=== PATIENT | female | born 1995 | race Caucasian/White ===

== ENCOUNTER 2019-11-16 05:34 | Day surgery (SDC) | payer MEDICAID ==
[2019-11-14 14:48] LABS: BASOPHILS # (AUTO) 0.1 X10'3 (0-0.2); BASOPHILS % (AUTO) 0.6 % (0-1); EOSINOPHILS # (AUTO) 0.1 X10'3 (0-0.9); EOSINOPHILS % (AUTO) 1.3 % (0-6); LYMPHOCYTES # (AUTO) 2.8 X10'3 (1.1-4.8); LYMPHOCYTES % (AUTO) 24.8 % (21-51); MEAN CORPUSCULAR HEMOGLOBIN 26.8 PG (27.0-31.0); MEAN CORPUSCULAR HGB CONC 33.1 g/dL (33.0-36.5); MEAN CORPUSCULAR VOLUME 80.9 FL (78-98); MEAN PLATELET VOLUME 7.2 FL (7.4-10.4); MONOCYTES # (AUTO) 0.6 X10'3 (0-0.9); MONOCYTES % (AUTO) 5.6 % (2-12); NEUTROPHILS # (AUTO) 7.7 X10'3 (1.8-7.7); NEUTROPHILS % (AUTO) 67.7 % (42-75); PRE OP HEMATOCRIT 35.9 % (35.0-45.0); PRE OP HEMOGLOBIN 11.9 g/dL (12.0-16.0); PRE OP PLATELET COUNT 391 X10'3 (140-440); RED BLOOD COUNT 4.44 X10'6 (4.20-5.60); RED CELL DISTRIBUTION WIDTH 14.8 % (11.5-14.5)
[2019-11-14 15:00] LABS: ALBUMIN 3.7 G/DL (3.4-5.0); ALBUMIN/GLOBULIN RATIO 0.9 (1.1-1.5); ALKALINE PHOSPHATASE 80 IU/L (46-116); BLOOD UREA NITROGEN 10 MG/DL (7-18); BUN/CREATININE RATIO 13.5 (6.6-38.0); CALCIUM 9.1 MG/DL (8.5-10.1); CHLORIDE 104 MMOL/L (99-107); CREATININE 0.74 MG/DL (0.40-0.90); PRE OP ALT 27 U/L (30-65); PRE OP ANION GAP 10 (8-16); PRE OP AST 16 U/L (10-37); PRE OP BILIRUB, TOTAL 0.4 MG/DL (0.0-1.0); PRE OP GLUCOSE 91 MG/DL (70-104); PRE OP SODIUM 139 MMOL/L (135-145); TOTAL CARBON DIOXIDE 25.4 MMOL/L (24-32); TOTAL PROTEIN 7.9 G/DL (6.4-8.2); eGFR > 90 ML/MIN
[2019-11-14 15:08] LABS: HCG SERUM QL NEGATIVE
[2019-11-16] VITALS (14 sets, daily range): BP systolic 113–141; BP diastolic 68–90
[~2019-11-16] VITALS: Ht 165.1 cm; Wt 104.3 kg
[~2019-11-16 05:34] MED LIST: BUPR300T53 PO; METF500T PO; THY60T PO; TOPI50TA PO; famotidine 20mg tablet PO ONE; ringers solution, lacted 1,000 ML IV SCH
[2019-11-16] MEDS ORDERED: LIDOcaine 1% (10mg/ml) 2ml vial ONE (05:48)
[2019-11-16] MEDS ORDERED: BUPIVAcaine 0.5% inj/PF 30 ML ONE (06:40)
[2019-11-16] MEDS ORDERED: fentaNYL/PF 50MCG/1 ML 2ML syringe ONE ×2 (07:33→08:38)
[2019-11-16] MEDS ORDERED: midazolam 2 mg/2 ml injection ONE (07:33)
[2019-11-16] MEDS ORDERED: sevoflurane 250ml liquid IH ONE (07:37)
[2019-11-16] MEDS ORDERED: LIDOcaine 2% (20mg/ml) 5ml vial ONE (07:45)
[2019-11-16] MEDS ORDERED: rocuronium 10mg/ml inj IV ONE (07:45)
[2019-11-16] MEDS ORDERED: propofol inj 20 ML IV ONE (07:45)
[2019-11-16] MEDS ORDERED: ringers solution, lacted 1,000 ML IV SCH (08:02)
[2019-11-16] MEDS ORDERED: meperidine/PF 25mg/ml syringe IV PRN ×3 (08:05)
[2019-11-16] MEDS ORDERED: morphine 4 MG/ML inj SYRINge IV PRN (08:05)
[2019-11-16] MEDS ORDERED: ondansetron/PF 4mg/2ml inj IV PRN (08:05)
[2019-11-16] MEDS ORDERED: proCHLORperazine 10 MG/2 ml inj IV PRN (08:05)
[2019-11-16] MEDS ORDERED: morphine 2 MG/ML inj. syringe IV PRN (08:05)
[2019-11-16] MEDS ORDERED: BUPIVAcaine/PF 5 MG/ML 10ML VIAL IJ ONE (08:15)
[2019-11-16] MEDS ORDERED: neostigmine methylsulfate 1 MG/ML 10ml vial ONE (08:26)
[2019-11-16] MEDS ORDERED: dexamethasone sod phosphate 4mg/ml inj. ONE (08:26)
[2019-11-16] MEDS ORDERED: ondansetron/PF 4mg/2ml inj ONE (08:26)
[2019-11-16] MEDS ORDERED: glycopyrrolate 0.2mg/ml inj ONE (08:26)
[2019-11-16] MEDS ORDERED: sugammadex 200mg/2ml injection IV ONE (08:34)
--- NOTE | 2019-11-16 08:40 | NUR ---
Received from OR via BED , accompanied by Anesthesiologist DR BILLS and report given by Anesthesiolgist. PATIENT WAKING UP, C/O PAIN SEE EMAR, V/S WNL, NEUROVASCULAR CHECKS INTACT, 20G PIV RUE, SCD ON, DEMABONDED TO LAP SIGHTS OF ABDOMEN AND WITH PERIPAD WITH SCANT DRAINAGE CDI.
[2019-11-16] MEDS ORDERED: oxyCODONE/APAP 5-325mg tablet PO ONE (08:45)
--- NOTE | 2019-11-16 10:40 | NUR ---
patient unable to void. bladder scan for 79
--- NOTE | 2019-11-16 11:50 | NUR ---
PATIENT A&OX4,DENIES PAIN , V/S WNL, NEUROVASCULAR CHECKS INTACT, 20G PIV RUE D/C, SCD OFF, DEMABONDED TO LAP SIGHTS OF ABDOMEN AND WITH PERIPAD WITH SCANT DRAINAGE CDI. PATIENT HAS VOIDED. I HAVE REVIEWED D/C INSTRUCTIONS WITH PATIENT AND FAMILY AND THEY HAVE VERBALIZED UNDERSTANDING. PATIENT D/C HOME WITH ALL BELONGINGS AND FAMILY GAVE TRANSPORT HOME.
== END 2019-11-16 11:50 | disposition home or self-care (01) ==
LOC: PAS 05:34
PROVIDERS: ATTEND Obstetrics & Gynecology
DX: R10.2 Pelvic and perineal pain (principal); F31.9 Bipolar disorder, unspecified; D64.9 Anemia, unspecified; E03.9 Hypothyroidism, unspecified; K21.9 Gastro-esophageal reflux disease without esophagitis; Z79.899 Other long term (current) drug therapy; Z88.0 Allergy status to penicillin; Z88.8 Allergy status to other drugs, medicaments and biological substances; F17.210 Nicotine dependence, cigarettes, uncomplicated; Z98.890 Other specified postprocedural states
CPT/HCPCS: 36415; 49321; 80053; 82948; 84703; 85025; 86885; 86900; 86901; C9399; J1100; J2001; J2175; J2250; J2405; J2704; J2710; J3010; J3490; J7120; A4618; A6250; A7000

== ENCOUNTER 2023-01-15 18:08 | Emergency (ER) | payer MEDICAID ==
[~2023-01-15] VITALS: Ht 165.1 cm; Wt 112.3 kg
[~2023-01-15 18:08] MED LIST changes: -famotidine 20mg tablet PO ONE; -ringers solution, lacted 1,000 ML IV SCH
[2023-01-15 19:42] VITALS: BP 154/97
[2023-01-15 20:11] LABS: CLARITY,URINE CLEAR (Clear); COLOR,URINE YELLOW (Yellow); GLUCOSE, URINE NEGATIVE (Neg); KETONES,URINE NEGATIVE (Neg); LEUKOCYTE ESTERASE ,URINE NEGATIVE (Neg); NITRITES, URINE NEGATIVE (Neg); OCCULT BLOOD,URINE TRACE-INTACT (Neg); PH,URINE 6.5 (4.8-8.0); PROTEIN,URINE NEGATIVE (Neg); UROBILINOGEN,URINE 0.2 E.U/dL (0.2-1.0)
[2023-01-15 20:15] LABS: UA COLLECTION TYPE CLN CATCH MIDSTREAM
[2023-01-15 20:16] LABS: BACTERIA,URINE NONE SEEN /HPF (Neg); MUCUS STRANDS NONE SEEN /LPF (Neg); RBC,URINE 0-2 /HPF (0-2); SQUAMOUS EPITHELIAL CELL,UR FEW /LPF (FEW); WBC,URINE NONE SEEN /HPF (0-4)
[2023-01-15 20:48] LABS: URINE HCG NEGATIVE (NEG)
== END 2023-01-15 21:44 | disposition home or self-care (01) ==
LOC: ER 18:09
DX: R10.13 Epigastric pain (principal); R11.0 Nausea; E03.9 Hypothyroidism, unspecified; F31.9 Bipolar disorder, unspecified; K21.9 Gastro-esophageal reflux disease without esophagitis; Z88.0 Allergy status to penicillin; Z79.899 Other long term (current) drug therapy
CPT/HCPCS: 81001; 81025; 99283

== ENCOUNTER 2023-05-19 18:21 | Emergency (ER) | payer MEDICAID ==
[~2023-05-19] VITALS: Ht 165.1 cm; Wt 104.5 kg
[2023-05-19 18:47] VITALS: BP 141/91; PULSE 86; TEMP 98.9; O2SAT 99
[2023-05-19] MEDS ORDERED: ketorolac tromethamine 15mg/ml inj. IM ONE (21:00)
[2023-05-19] MEDS ORDERED: levoFLOXACIN 750MG TABLET PO ONE (21:00)
[2023-05-19] MEDS ORDERED: LEVO750T68 PO (21:02)
[2023-05-19] MEDS ORDERED: NAPR-56 PO (21:02)
[2023-05-19] MEDS ORDERED: ketorolac trometh. 30mg/ml inj. IM ONE (21:20)
[2023-05-19 21:24] VITALS: RESP 16
== END 2023-05-19 21:54 | disposition home or self-care (01) ==
LOC: ER 18:22
DX: J22 Unspecified acute lower respiratory infection (principal); K21.9 Gastro-esophageal reflux disease without esophagitis; E03.9 Hypothyroidism, unspecified; F31.9 Bipolar disorder, unspecified; Z88.0 Allergy status to penicillin; Z79.899 Other long term (current) drug therapy
CPT/HCPCS: 96372; 99283; J1885

== ENCOUNTER 2024-04-13 18:30 | Emergency (ER) | payer MEDICAID ==
[~2024-04-13] VITALS: Ht 165.1 cm; Wt 112.2 kg
[2024-04-13 18:34] VITALS: TEMP 98.6
[2024-04-13 18:59] LABS: BILIRUBIN,URINE MODERATE (Neg); CLARITY,URINE SLIGHTLY CLOUDY (Clear); COLOR,URINE YELLOW (Yellow); GLUCOSE, URINE NEGATIVE (Neg); KETONES,URINE NEGATIVE (Neg); LEUKOCYTE ESTERASE ,URINE NEGATIVE (Neg); NITRITES, URINE NEGATIVE (Neg); OCCULT BLOOD,URINE TRACE-INTACT (Neg); PROTEIN,URINE TRACE mg/dl (Neg); UROBILINOGEN,URINE 0.2 E.U/dL (0.2-1.0)
[2024-04-13 19:00] LABS: URINE HCG NEGATIVE (NEG)
[2024-04-13 19:15] LABS: UA COLLECTION TYPE CLN CATCH MIDSTREAM
[2024-04-13] MEDS: ondansetron 4mg rapidly disintigrating tab PO ONE (19:19)
[2024-04-13] MEDS: dicyclomine 10 MG capsule PO ONE (19:19)
[2024-04-13] MEDS: ketorolac trometh. 30mg/ml inj. IM ONE (19:19)
[2024-04-13] MEDS: mag hydrox/Alum hydrox/simeth 30ml oral suspension PO ONE (19:19)
[2024-04-13 19:20] LABS: BACTERIA,URINE FEW /HPF (Neg); MUCUS STRANDS FEW /LPF (Neg); RBC,URINE 0-2 /HPF (0-2); SQUAMOUS EPITHELIAL CELL,UR FEW /LPF (FEW); WBC,URINE 0-4 /HPF (0-4)
[2024-04-13] MEDS: LIDOcaine 2% Viscous 15ml cup MM PRN (19:20)
[2024-04-13 19:23] LABS: BASOPHILS # (AUTO) 0.1 X10'3 (0-0.2); BASOPHILS % (AUTO) 0.5 % (0-1); EOSINOPHILS # (AUTO) 0.2 X10'3 (0-0.9); EOSINOPHILS % (AUTO) 1.3 % (0-6); HEMATOCRIT 37.6 % (35.0-45.0); LYMPHOCYTES # (AUTO) 2.8 X10'3 (1.1-4.8); LYMPHOCYTES % (AUTO) 17.9 % (21-51); MEAN CORPUSCULAR HEMOGLOBIN 24.3 PG (27.0-31.0); MEAN CORPUSCULAR HGB CONC 31.9 g/dL (33.0-36.5); MEAN CORPUSCULAR VOLUME 76.1 FL (78-98); MEAN PLATELET VOLUME 7.2 FL (7.4-10.4); MONOCYTES # (AUTO) 0.9 X10'3 (0-0.9); MONOCYTES % (AUTO) 5.8 % (2-12); NEUTROPHILS # (AUTO) 11.6 X10'3 (1.8-7.7); NEUTROPHILS % (AUTO) 74.5 % (42-75); PLATELET COUNT 420 X10'3 (140-440); RED BLOOD COUNT 4.95 X10'6 (4.20-5.60); RED CELL DISTRIBUTION WIDTH 17.6 % (11.5-14.5); WHITE BLOOD COUNT 15.6 X10'3 (4.5-11.0)
[2024-04-13 19:37] LABS: ALANINE AMINOTRANSFERASE 30 U/L (12-78); ALBUMIN 3.8 G/DL (3.4-5.0); ALBUMIN/GLOBULIN RATIO 0.8 (1.1-1.5); ALKALINE PHOSPHATASE 75 IU/L (46-116); ANION GAP 9 (8-16); ASPARTATE AMINO TRANSFERASE 15 U/L (10-37); BILIRUBIN,TOTAL 0.5 MG/DL (0.1-1.0); BLOOD UREA NITROGEN 12 MG/DL (7-18); BUN/CREATININE RATIO 15.2 (10.0-20.0); CALCIUM 9.5 MG/DL (8.5-10.1); CHLORIDE 103 MMOL/L (99-107); CREATININE 0.79 MG/DL (0.40-0.90); GLUCOSE 98 MG/DL (70-104); LIPASE 63 U/L (16-77); POTASSIUM 3.9 MMOL/L (3.5-5.1); SODIUM 138 MMOL/L (135-145); TOTAL CARBON DIOXIDE 26.5 MMOL/L (24-32); TOTAL PROTEIN 8.3 G/DL (6.4-8.2); eCRCL 97 ML/MIN; eGFR 88 ML/MIN
[2024-04-13 19:46] LABS: HCG SERUM QL NEGATIVE
[2024-04-13] MEDS: diphenhydrAMINE 50 mg/ml inj IM ONE (20:17)
[2024-04-13] MEDS: metoclopramide 5 mg/ml inj IM ONE (20:18)
[2024-04-13] MEDS ORDERED: MAG-54 PO (20:38)
[2024-04-13] MEDS ORDERED: LIDO15SO9 PO (20:38)
[2024-04-13] MEDS ORDERED: DICY20TA17 PO (20:38)
[2024-04-13 20:49] VITALS: BP 99/68; PULSE 78; RESP 16; O2SAT 98
== END 2024-04-13 20:53 | disposition home or self-care (01) ==
LOC: ER 18:31
DX: K21.9 Gastro-esophageal reflux disease without esophagitis (principal); F31.9 Bipolar disorder, unspecified; Z88.0 Allergy status to penicillin; Z79.899 Other long term (current) drug therapy; Z79.84 Long term (current) use of oral hypoglycemic drugs
CPT/HCPCS: 36415; 74176; 76700; 80053; 81001; 81025; 83690; 84703; 85025; 96372; 99285; J1200; J1885; J2765

== ENCOUNTER 2024-04-14 05:29 | Emergency (ER) | payer MEDICAID ==
[~2024-04-14] VITALS: Ht 165.1 cm; Wt 111.4 kg
[~2024-04-14 05:29] MED LIST changes: +DICY20TA17 PO; +LIDO15SO9 PO; +MAG-54 PO
[2024-04-14 05:38] VITALS: TEMP 97.2
[2024-04-14] MEDS: metoclopramide 5 mg/ml inj IV ONE (06:47)
[2024-04-14] MEDS: normal saline 1000ML IV soln IVB ONE ×2 (06:47→07:17)
[2024-04-14] MEDS: diphenhydrAMINE 50 mg/ml inj IV ONE (06:47)
[2024-04-14] MEDS: LORazepam 2 mg/ml vial IV ONE (06:48)
[2024-04-14 07:21] LABS: BASOPHILS % (AUTO) 0.2 % (0-1); EOSINOPHILS # (AUTO) 0.1 X10'3 (0-0.9); EOSINOPHILS % (AUTO) 0.9 % (0-6); HEMATOCRIT 36.9 % (35.0-45.0); HEMOGLOBIN 11.7 g/dl (12.0-16.0); LYMPHOCYTES # (AUTO) 1.8 X10'3 (1.1-4.8); LYMPHOCYTES % (AUTO) 12.4 % (21-51); MEAN CORPUSCULAR HEMOGLOBIN 23.8 PG (27.0-31.0); MEAN CORPUSCULAR HGB CONC 31.6 g/dL (33.0-36.5); MEAN CORPUSCULAR VOLUME 75.1 FL (78-98); MEAN PLATELET VOLUME 7.2 FL (7.4-10.4); MONOCYTES # (AUTO) 0.8 X10'3 (0-0.9); MONOCYTES % (AUTO) 5.5 % (2-12); NEUTROPHILS # (AUTO) 11.7 X10'3 (1.8-7.7); PLATELET COUNT 405 X10'3 (140-440); RED BLOOD COUNT 4.91 X10'6 (4.20-5.60); RED CELL DISTRIBUTION WIDTH 17.5 % (11.5-14.5); WHITE BLOOD COUNT 14.4 X10'3 (4.5-11.0)
[2024-04-14] MEDS: haloperidol lactate 5mg/ml inj IM ONE (07:21)
[2024-04-14 07:37] LABS: H PYLORI ANTIBODY NEGATIVE (Neg)
[2024-04-14 07:40] LABS: ALANINE AMINOTRANSFERASE 31 U/L (12-78); ALBUMIN 3.6 G/DL (3.4-5.0); ALBUMIN/GLOBULIN RATIO 0.8 (1.1-1.5); ALKALINE PHOSPHATASE 74 IU/L (46-116); ANION GAP 10 (8-16); ASPARTATE AMINO TRANSFERASE 16 U/L (10-37); BILIRUBIN,TOTAL 0.5 MG/DL (0.1-1.0); BLOOD UREA NITROGEN 20 MG/DL (7-18); BUN/CREATININE RATIO 21.7 (10.0-20.0); CALCIUM 9.5 MG/DL (8.5-10.1); CHLORIDE 104 MMOL/L (99-107); CREATININE 0.92 MG/DL (0.40-0.90); GLUCOSE 107 MG/DL (70-104); LIPASE 66 U/L (16-77); SODIUM 139 MMOL/L (135-145); TOTAL CARBON DIOXIDE 25.3 MMOL/L (24-32); TOTAL PROTEIN 8.1 G/DL (6.4-8.2); eCRCL 83 ML/MIN; eGFR 74 ML/MIN
[2024-04-14] MEDS: mag hydrox/Alum hydrox/simeth 30ml oral suspension PO ONE (08:16)
[2024-04-14] MEDS: LIDOcaine 2% Viscous 15ml cup MM ONE (08:16)
[2024-04-14 09:04] VITALS: BP 98/52; PULSE 87; RESP 14; O2SAT 100
== END 2024-04-14 09:07 | disposition home or self-care (01) ==
LOC: ER 05:30
DX: R10.13 Epigastric pain (principal); R10.11 Right upper quadrant pain; K21.9 Gastro-esophageal reflux disease without esophagitis; F31.9 Bipolar disorder, unspecified; Z88.0 Allergy status to penicillin; Z79.899 Other long term (current) drug therapy; Z79.84 Long term (current) use of oral hypoglycemic drugs
CPT/HCPCS: 36415; 80053; 83690; 84145; 85025; 86677; 96361; 96372; 96374; 96375; 99284; J1200; J1630; J2060; J2765; J7030

== ENCOUNTER 2024-11-01 18:26 | Emergency (ER) | payer MEDICAID ==
[~2024-11-01] VITALS: Ht 165.1 cm; Wt 111.4 kg
[2024-11-01 19:13] VITALS: BP 144/100; PULSE 96; RESP 20; TEMP 98.7; O2SAT 99
[2024-11-01 19:39] LABS: BASOPHILS # (AUTO) 0.1 X10'3 (0-0.2); BASOPHILS % (AUTO) 1.1 % (0-1); EOSINOPHILS # (AUTO) 0.4 X10'3 (0-0.9); HEMATOCRIT 37.4 % (35.0-45.0); HEMOGLOBIN 12.1 g/dl (12.0-16.0); LYMPHOCYTES # (AUTO) 3.6 X10'3 (1.1-4.8); LYMPHOCYTES % (AUTO) 27.6 % (21-51); MEAN CORPUSCULAR HEMOGLOBIN 24.5 PG (27.0-31.0); MEAN CORPUSCULAR HGB CONC 32.4 g/dL (33.0-36.5); MEAN CORPUSCULAR VOLUME 75.8 FL (78-98); MONOCYTES # (AUTO) 0.8 X10'3 (0-0.9); MONOCYTES % (AUTO) 6.5 % (2-12); NEUTROPHILS % (AUTO) 61.8 % (42-75); PLATELET COUNT 463 X10'3 (140-440); RED BLOOD COUNT 4.93 X10'6 (4.20-5.60); RED CELL DISTRIBUTION WIDTH 17.3 % (11.5-14.5)
[2024-11-01 19:54] LABS: ALANINE AMINOTRANSFERASE 32 U/L (12-78); ALBUMIN 3.7 G/DL (3.4-5.0); ALBUMIN/GLOBULIN RATIO 0.7 (1.1-1.5); ALKALINE PHOSPHATASE 79 IU/L (46-116); ANION GAP 9 (8-16); ASPARTATE AMINO TRANSFERASE 22 U/L (10-37); BILIRUBIN,TOTAL 0.2 MG/DL (0.1-1.0); BLOOD UREA NITROGEN 8 MG/DL (7-18); BUN/CREATININE RATIO 12.7 (10.0-20.0); CALCIUM 9.2 MG/DL (8.5-10.1); CHLORIDE 103 MMOL/L (99-107); CREATININE 0.63 MG/DL (0.40-0.90); GLUCOSE 91 MG/DL (70-104); POTASSIUM 3.9 MMOL/L (3.5-5.1); SODIUM 140 MMOL/L (135-145); TOTAL CARBON DIOXIDE 28.1 MMOL/L (24-32); TOTAL PROTEIN 8.9 G/DL (6.4-8.2); eCRCL 122 ML/MIN; eGFR > 90 ML/MIN
[2024-11-01 20:03] LABS: PRO BRAIN NATRIURETIC PEPTIDE < 30 PG/ML (0-125)
[2024-11-01] MEDS ORDERED: PRED20TA PO (23:32)
[2024-11-01] MEDS ORDERED: ALBU18HF2 INH (23:32)
[2024-11-01] MEDS ORDERED: AZIT-164 PO (23:32)
== END 2024-11-02 00:25 | disposition home or self-care (01) ==
LOC: ER 18:27
DX: J20.9 Acute bronchitis, unspecified (principal); K21.9 Gastro-esophageal reflux disease without esophagitis; F31.9 Bipolar disorder, unspecified; Z88.0 Allergy status to penicillin
CPT/HCPCS: 36415; 71045; 80053; 83880; 84484; 85025; 93005; 99285